=== PATIENT | male | born 1970 | race Caucasian/White ===

== ENCOUNTER 2016-08-21 14:33 | Emergency (ER) | payer BC | END 2016-08-21 17:51 | disposition home or self-care (01) | LOC: ER1 14:33 | DX: M25.562 Pain in left knee (principal); I10 Essential (primary) hypertension; Z79.899 Other long term (current) drug therapy | CPT/HCPCS: 73564; 96372; 99283; J1885 ==

== ENCOUNTER 2016-08-28 15:29 | Emergency (ER) | payer BC | END 2016-08-28 17:34 | disposition home or self-care (01) | LOC: ER1 15:29 | DX: S83.92XA Sprain of unspecified site of left knee, initial encounter (principal); I10 Essential (primary) hypertension; X58.XXXA Exposure to other specified factors, initial encounter; Y92.69 Other specified industrial and construction area as the place of occurrence of the external cause; Y99.0 Civilian activity done for income or pay; Z79.899 Other long term (current) drug therapy | CPT/HCPCS: 73700; 96372; 99283; J1885 ==

== ENCOUNTER → 2016-08-29 | Outpatient (CLI) | payer BC | LOC: KOH-I 15:00 | DX: S83.242A Other tear of medial meniscus, current injury, left knee, initial encounter (principal); M25.462 Effusion, left knee; R93.7 Abnormal findings on diagnostic imaging of other parts of musculoskeletal system | CPT/HCPCS: 73721 ==

== ENCOUNTER → 2020-12-12 | Outpatient (CLI) | payer BC | LOC: HEART 5 12-01 10:00 | DX: R07.9 Chest pain, unspecified (principal); I08.1 Rheumatic disorders of both mitral and tricuspid valves | CPT/HCPCS: 93306 ==

== ENCOUNTER 2021-03-21 01:37 | Emergency (ER) | payer BC ==
[2021-03-21 02:16] LABS: HEMOGLOBIN 14.6 gm/dl (14.0-17.5); RED BLOOD COUNT 5.08 M/UL (4.20-5.50); WHITE BLOOD COUNT 12.1 K/UL (4.5-11.0)
[2021-03-21 02:32] LABS: BUN/CREATININE RATIO 17 (0-10)
[2021-03-21] MEDS ORDERED: ENDOCET 5-3251 EACH PO (06:59)
[2021-03-21] MEDS ORDERED: ZOFRAN ODT 4 MG4 MG SL (06:59)
[2021-03-21] MEDS ORDERED: AUGMENTIN 875-1 EACH PO (07:01)
== END 2021-03-21 07:20 | disposition home or self-care (01) ==
LOC: ER1 01:37
PROVIDERS: Emergency Medicine
DX: K81.0 Acute cholecystitis (principal); R10.811 Right upper quadrant abdominal tenderness; I10 Essential (primary) hypertension
CPT/HCPCS: 76705; 80053; 83690; 85025; 96374; 96375; 99284; J1170; J1885; J2270; J2405; J7030

== ENCOUNTER → 2021-04-04 | Outpatient (CLI) | payer BC ==
[~2021-04-04] MED LIST: AUGMENTIN 875-1 EACH PO; CALCIUM PO; ENDOCET 5-3251 EACH PO; LABETALOL HCL200 MG PO; LIPITOR10 MG PO; LISINOPRIL20 MG PO; MEN'S DAILY FO1 EACH PO; NORVASC10 MG PO; PERCOCET 5/325 T1 EA PO; VITAMIN D3 PO; ZOFRAN ODT 4 MG4 MG SL
== END ==
LOC: OPSV2 11:30
DX: Z01.810 Encounter for preprocedural cardiovascular examination (principal)
CPT/HCPCS: 93005

== ENCOUNTER → 2021-04-06 | Day surgery (SDC) | payer BC | END | disposition home or self-care (01) | LOC: OR 08:06 | DX: K80.20 Calculus of gallbladder without cholecystitis without obstruction (principal); I10 Essential (primary) hypertension; E78.5 Hyperlipidemia, unspecified; M17.10 Unilateral primary osteoarthritis, unspecified knee; E66.01 Morbid (severe) obesity due to excess calories; Z68.41 Body mass index [BMI] 40.0-44.9, adult; Z79.899 Other long term (current) drug therapy; Z88.8 Allergy status to other drugs, medicaments and biological substances; Z20.822 Contact with and (suspected) exposure to COVID-19; Z98.84 Bariatric surgery status | CPT/HCPCS: J0690; J1100; J1885; J2001; J2250; J2270; J2405; J2704; J2710; J3010; J7030; J7040; J7120 ==

== ENCOUNTER 2021-05-29 10:32 | Inpatient (IN) | payer BC ==
[~2021-05-29] VITALS: Ht 177.8 cm; Wt 138.3 kg
[2021-05-29 12:43] LABS: HEMOGLOBIN 14.1 gm/dl (14.0-17.5); RED BLOOD COUNT 5.07 M/UL (4.20-5.50); WHITE BLOOD COUNT 4.3 K/UL (4.5-11.0)
[2021-05-29 13:06] LABS: BUN/CREATININE RATIO 15 (0-10)
[2021-05-29] MEDS ORDERED: MULTIVITAMIN1 EACH PO (15:19)
[2021-05-29] MEDS ORDERED: VITAMIN D3125 MC1 PO (15:19)
[2021-05-29] MEDS ORDERED: CALCIUM CARBON600 M1 PO (15:20)
[2021-05-30 05:37] LABS: HEMOGLOBIN 12.8 gm/dl (14.0-17.5); RED BLOOD COUNT 4.58 M/UL (4.20-5.50); WHITE BLOOD COUNT 4.1 K/UL (4.5-11.0)
[2021-05-30 05:51] LABS: BUN/CREATININE RATIO 12 (0-10)
[2021-05-31 06:02] LABS: RED BLOOD COUNT 4.77 M/UL (4.20-5.50)
[2021-05-31 06:26] LABS: BUN/CREATININE RATIO 14 (0-10)
[2021-06-01 06:00] LABS: HEMOGLOBIN 13.1 gm/dl (14.0-17.5); RED BLOOD COUNT 4.81 M/UL (4.20-5.50)
[2021-06-01 06:02] LABS: WHITE BLOOD COUNT 8.9 K/UL (4.5-11.0)
[2021-06-01 06:49] LABS: BUN/CREATININE RATIO 22 (0-10)
[2021-06-01] MEDS ORDERED: BUDESONIDE0.5 MG/2 M NEB (16:37)
[2021-06-01] MEDS ORDERED: BENZONATATE100 MG PO (16:37)
[2021-06-01] MEDS ORDERED: DEXAMETHASONE6 MG PO (16:37)
[2021-06-01] MEDS ORDERED: IPRAT-ALBUT 0.5-3 ML INH (16:38)
[2021-06-01] MEDS ORDERED: AUGMENTIN 875-1 EACH PO (16:38)
[2021-06-01] MEDS ORDERED: AEROECLIPSE II1 EACH MC (16:40)
== END 2021-06-01 18:20 | disposition home or self-care (01) | DRG 177 ==
LOC: ER1 10:32 → CDU 14:26 → CCU 17:28 → M/S 06-01 13:15
PROVIDERS: Internal Medicine; Physician Assistant; ADMIT Internal Medicine
PROC: 8E0ZXY6 Isolation (ICD-10-PCS; principal; 2021-05-29)
PROC: 3E0333Z Introduction of Anti-inflammatory into Peripheral Vein, Percutaneous Approach (ICD-10-PCS; 2021-05-29)
PROC: XW033E5 Introduction of Remdesivir Anti-infective into Peripheral Vein, Percutaneous Approach, New Technology Group 5 (ICD-10-PCS; 2021-05-29)
DX: U07.1 COVID-19 (principal); J12.82 Pneumonia due to coronavirus disease 2019; J96.01 Acute respiratory failure with hypoxia; J15.9 Unspecified bacterial pneumonia; Z68.41 Body mass index [BMI] 40.0-44.9, adult; I10 Essential (primary) hypertension; M19.91 Primary osteoarthritis, unspecified site; D69.6 Thrombocytopenia, unspecified; G89.29 Other chronic pain; E66.9 Obesity, unspecified; E78.5 Hyperlipidemia, unspecified; Z90.49 Acquired absence of other specified parts of digestive tract; Z98.0 Intestinal bypass and anastomosis status; Z98.890 Other specified postprocedural states; Z83.6 Family history of other diseases of the respiratory system; Z88.8 Allergy status to other drugs, medicaments and biological substances; Z79.899 Other long term (current) drug therapy
CPT/HCPCS: 36600; 71045; 80053; 82550; 82553; 82607; 82728; 82803; 83036; 83540; 83550; 83615; 83874; 83880; 84484; 85025; 85027; 85379; 86140; 87040; 93005; 94640; 94760; 96365; 99285; J0248; J0696; J1100; J1650; J2405; J7030; J7070; U0002